=== PATIENT | male | born 1985 | race Caucasian/White ===

== ENCOUNTER 2016-11-27 18:42 | Emergency (ER) | payer MEDICAID ==
[2016-11-27 18:56] VITALS: BMI 55.9
[2016-11-27 19:01] VITALS: TEMP 97.9
--- NOTE | 2016-11-27 19:36 | ED PDOC ---
Arrival/HPI - General Chief Complaint: High Blood Pressure Time Seen by Provider: 11/27/16 19:06 Historian: Patient - History of Present Illness Narrative History of Present Illness (Text): 11/27/16 19:30 A 31 year old male, whose psat medical history includes hypertension and pre- diabetes, presents to the emergency department for elevated blood pressure. Patient reports he was seen by his PMD earlier today and instructed to come into the emergency room for further evaluation and treatment. Patient reports he regularly takes Metropolol , Lasix,and spironolactone, but is unsure of the exact dosages. He states he is usually compliant with his medication and his doctor has been adjusting his meds. Patient denies any, fever, chills, nausea, vomiting, abdominal pain, chest pain, shortness of breath, headache, dizziness, visual disturbances or any other complaints. PMD: Dr. Becerra Time/Duration: Other (Today) Symptom Course: Unchanged Quality: Other Context: Other Past Medical History - Provider Review Nursing Documentation Reviewed: Yes - Travel History If Yes, travel location?: [facility] - Infectious Disease Hx of Infectious Diseases: None - Cardiac Hx Cardiac Disorders: Yes Hx Hypertension: Yes - Pulmonary Hx Respiratory Disorders: No - Neurological Hx Neurological Disorder: No - HEENT Hx HEENT Disorder: Yes Other/Comment: glasses - Renal Hx Renal Disorder: No - Endocrine/Metabolic Hx Endocrine Disorders: No - Hematological/Oncological Hx Blood Disorders: No - Integumentary Hx Dermatological Disorder: No - Musculoskeletal/Rheumatological Hx Musculoskeletal Disorders: No - Gastrointestinal Hx Gastrointestinal Disorders: No - Genitourinary/Gynecological Hx Genitourinary Disorders: No - Psychiatric Hx Psychophysiologic Disorder: No Hx Substance Use: No - Anesthesia Hx Anesthesia: No Family/Social History - Physician Review Nursing Documentation Reviewed: Yes Family/Social History: No Known Family HX Smoking Status: Never Smoked Hx Alcohol Use: Yes Frequency of alcohol use: Socially Hx Substance Use: No Allergies/Home Meds Allergies/Adverse Reactions: Allergies Penicillins Allergy (Verified 11/27/16 18:56) DIARRHEA Home Medications: Home Meds Medication Instructions Recorded Confirmed Furosemide [Lasix] 0 mg PO DAILY 11/27/16 11/27/16 Metoprolol Succinate [Toprol Xl] 0 mg PO DAILY 11/27/16 11/27/16 Spironolactone [Aldactone] 0 mg PO DAILY 11/27/16 11/27/16 Review of Systems - Physician Review All systems were reviewed & negative as marked: Yes - Review of Systems Constitutional: Other (High blood pressure). absent: Fevers, Night Sweats Eyes: absent: Vision Changes Respiratory: absent: SOB Cardiovascular: absent: Chest Pain Gastrointestinal: absent: Abdominal Pain, Nausea, Vomiting Neurological: absent: Headache, Dizziness Physical Exam Vital Signs Reviewed: Yes Vital Signs Temp Pulse Resp BP Pulse Ox 11/27/16 21:31 84 160/115 H 11/27/16 21:15 18 160/115 H 97 11/27/16 20:09 75 16 189/105 H 96 11/27/16 19:25 83 193/121 H 11/27/16 19:00 97.9 F 87 20 200/135 H 96 Temperature: Afebrile Blood Pressure: Hypertensive Pulse: Regular Respiratory Rate: Normal Appearance: Positive for: Non-Toxic, Comfortable, Other (Obese male) Pain Distress: None Mental Status: Positive for: Alert and Oriented X 3 - Systems Exam Head: Present: Atraumatic, Normocephalic Pupils: Present: PERRL Extroacular Muscles: Present: EOMI Conjunctiva: Present: Normal Mouth: Present: Moist Mucous Membranes Pharnyx: No: ERYTHEMA, EXUDATE, TONSILS ENLARGED Neck: Present: Normal Range of Motion, Other (neck supple). No: Meningeal Signs Respiratory/Chest: Present: Clear to Auscultation, Good Air Exchange. No: Respiratory Distress, Accessory Muscle Use Cardiovascular: Present: Regular Rate and Rhythm, Normal S1, S2. No: Murmurs Abdomen: Present: Normal Bowel Sounds. No: Tenderness, Distention, Peritoneal Signs Back: Present: Normal Inspection Upper Extremity: Present: Normal Inspection. No: Cyanosis, Edema Lower Extremity: Present: Normal Inspection. No: Edema Neurological: Present: GCS=15, CN II-XII Intact, Speech Normal, Motor Func Grossly Intact, Normal Sensory Function, Normal Cerebellar Funct, Gait Normal, Memory Normal Skin: Present: Warm, Dry, Normal Color. No: Rashes Psychiatric: Present: Alert, Oriented x 3, Normal Insight, Normal Concentration Medical Decision Making ED Course and Treatment: 11/27/16 19:30 Impression: A 31 year old male with high blood pressure. Patient currently denies any pain or discomfort. Physical exam unremarkable. Plan: -- EKG -- Labs -- Clonidine -- Reassess and disposition Progress Notes: EKG shows NSR at 91 BPM with anterior infarct age undetermined, unspecific ST/T changes. Interpreted by me. - Lab Interpretations Lab Results: 11/27/16 20:00 11/27/16 20:00 Lab Results 11/27/16 20:00: WBC 11.3 H, RBC 5.68, Hgb 15.7, Hct 46.6, MCV 82.0, MCH 27.6, MCHC 33.7, RDW 14.5, Plt Count 247, MPV 9.9 11/27/16 20:00: Sodium 141, Potassium 3.6, Chloride 98, Carbon Dioxide 32, Anion Gap 15, BUN 19, Creatinine 1.0, Est GFR ( Amer) > 60, Est GFR (Non- Af Amer) > 60, Random Glucose 98, Calcium 9.1, Total Bilirubin 0.5, AST 28, ALT 42, Alkaline Phosphatase 82, Lactate Dehydrogenase 432, Total Creatine Kinase 92 , Troponin I 0.01, Total Protein 7.6, Albumin 4.0, Globulin 3.6, Albumin/ Globulin Ratio 1.1 I have reviewed the lab results: Yes - Medication Orders Current Medication Orders: Discontinued Medications Clonidine HCl (Catapres) 0.2 mg PO STAT STA Stop: 11/27/16 19:15 Last Admin: 11/27/16 19:25 Dose: 0.2 mg Clonidine HCl (Catapres) 0.1 mg PO STAT STA Stop: 11/27/16 21:18 Last Admin: 11/27/16 21:31 Dose: 0.1 mg - Scribe Statement The provider has reviewed the documentation as recorded by the Kimo Houston Provider Scribe Attestation: All medical record entries made by the Scribe were at my direction and personally dictated by me. I have reviewed the chart and agree that the record accurately reflects my personal performance of the history, physical exam, medical decision making, and the department course for this patient. I have also personally directed, reviewed, and agree with the discharge instructions and disposition. Disposition/Present on Arrival - Present on Arrival Any Indicators Present on Arrival: No History of DVT/PE: No History of Uncontrolled Diabetes: No Urinary Catheter: No History of Decub. Ulcer: No History Surgical Site Infection Following: None - Disposition Have Diagnosis and Disposition been Completed?: Yes Diagnosis: Hypertension Disposition: HOME/ ROUTINE Disposition Time: 21:59 Patient Plan: Discharge Condition: STABLE Discharge Instructions (ExitCare): Chronic Hypertension (ED) Additional Instructions: Continue your current medications as prescribed/follow up with your doctor tomorrow Referrals: Chary Becerra DO [Primary Care Provider] - Follow up with primary Forms: [employer] (Irish)
[2016-11-27 20:12] LABS: HEMOGLOBIN 15.7 g/dL (14.0-18.0); MEAN CORPUSCULAR HEMOGLOBIN 27.6 pg (25.0-35.0); MEAN CORPUSCULAR HGB CONC 33.7 g/dl (31.0-37.0); MEAN PLATELET VOLUME 9.9 fl (7.0-11.0); RBC 5.68 10^6/uL (3.5-6.1); RED CELL DISTRIBUTION WIDTH 14.5 % (11.5-14.5); WHITE BLOOD COUNT 11.3 10^3/ul (4.5-11.0)
[2016-11-27 20:22] LABS: ALB/GLOB RATIO 1.1 (1.1-1.8); ALT/SGPT 42 U/L (7-56); AST/SGOT 28 U/L (15-59); BLOOD UREA NITROGEN 19 mg/dL (7-21); CALCIUM 9.1 mg/dL (8.4-10.5); GFR AFRICAN-AMERICAN > 60; GFR NON-AFRICAN AMERICAN > 60
[2016-11-27 20:35] LABS: TROPONIN I 0.01 ng/mL
[2016-11-27 22:08] VITALS: BP 154/111; PULSE 76; RESP 16; O2SAT 99
--- NOTE | 2016-11-29 01:09 | CARD ---
APPROVED REPORT EKG Measurement Heart [id number] <Conclusion> Normal sinus rhythm Possible Left atrial enlargement Anterior infarct, age undetermined Abnormal ECG
== END 2016-11-27 22:09 | disposition home or self-care (01) ==
LOC: ED 18:42
DX: I10 Essential (primary) hypertension (principal); R73.03 Prediabetes